=== PATIENT | female | born 1985 | race Caucasian/White ===

== ENCOUNTER 2017-12-23 10:53 | Emergency (ER) | payer OTHER ==
[2017-12-23 11:30] VITALS: BP 110/55
[2017-12-23] MEDS ORDERED: Ketorolac INJ* 60 MG/2 ML VIAL IM ONE (11:52)
--- NOTE | 2017-12-23 11:57 | UC ---
Neck Pain HPI - HPI Summary HPI Summary: 32-year-old woman comes to clinic today with a chief complaint of lower neck and upper thoracic back and left scapula left arm pain. Pain started 4 days ago. She woke up in the morning with the pain. No known trauma. Patient states it feels like a pinched nerve. Denies any chest pain or shortness of breath. The left arm feels tingly and numb. Pain is decreased when she holds the left arm up over her head. It hurts to move the arm but she has good strength. - History of Current Complaint Chief Complaint: UCUpperExtremity Stated Complaint: LEFT ARM COMPLAINT Time Seen by Provider: 12/23/17 11:45 Hx Last Menstrual Period: last week Pain Intensity: 9 - Allergies/Home Medications Allergies/Adverse Reactions: Allergies Allergy/AdvReac Type Severity Reaction Status Date / Time Penicillins Allergy Shortness Verified 12/23/17 11:31 of Breath Home Medications: Home Medications Acetaminophen [Tylenol Extra Strength] 1,000 mg PO Q6H PRN 12/23/17 [History Confirmed 12/23/17] Quetiapine Fumarate [Seroquel 50 mg tab] 50 mg PO QPM 12/23/17 [History Confirmed 12/23/17] Sertraline* [Zoloft*] 100 mg PO BEDTIME 12/23/17 [History Confirmed 12/23/17] PMH/Surg Hx/FS Hx/Imm Hx - Surgical History Surgical History: Yes Surgery Procedure, Year, and Place: , - Social History Alcohol Use: Occasionally Substance Use Type: None Smoking Status (MU): Heavy Every Day Tobacco Smoker Review Of Systems Constitutional: Positive: Negative Skin: Positive: Negative Eyes: Positive: Negative ENT: Positive: Negative Respiratory: Positive: Negative Cardiovascular: Positive: Negative Gastrointestinal: Positive: Negative Musculoskeletal: Positive: Other: - See history present illness Neurological: Positive: Other - See history present illness Psychological: Positive: Negative All Other Systems Reviewed And Are Negative: Yes Physical Exam Triage Information Reviewed: Yes Appearance: Well-Appearing, Well-Nourished, Pain Distress - moderate with palpation of left scapulaer area and with rom of left arm Vital Signs: Initial Vital Signs Temp 97.5 F 12/23/17 11:16 Pulse 67 12/23/17 11:16 Resp 24 12/23/17 11:16 BP 110/55 12/23/17 11:16 Pulse Ox 98 12/23/17 11:16 Vital Signs Reviewed: Yes Eye Exam: Normal Eyes: Positive: Conjunctiva Clear Neck exam: Normal Neck: Positive: Supple, Nontender Respiratory: Positive: Lungs clear, Normal breath sounds, No respiratory distress Cardiovascular: Positive: RRR Musculoskeletal: Positive: Other: - On examination patient has full strength with finger extension and flexion abduction and abduction. The wrists have full strength in all range of motion of the elbows have full range of motion full-strength. Shoulders also have full range of motion and full strength. Normal radial pulses bilaterally. Patient reports some decreased sensation on the left forearm. Neurological: Positive: Alert, Other: Psychological Exam: Normal Psychological: Positive: Age Appropriate Behavior Skin Exam: Normal Neck Pain Course/Dx - Course Course Of Treatment: Order Information: CT SPINE CERVICAL W/O. Accession Number : [id number]. CPT: 45033. INDICATION: Pain lower neck radiation into the left arm. COMPARISON: There are no prior studies available for comparison. TECHNIQUE: Contiguous axial sections were obtained from the skull base through the T1. vertebra. Images were reconstructed in the sagittal and coronal planes. FINDINGS: VERTEBRA: There is straightening and reversal of the normal cervical lordosis. No. prevertebral soft tissue swelling or fracture is seen. C2-C3: No significant disc bulge or herniation is noted. No spinal canal or neural. foraminal narrowing is seen. C3-C4: No significant disc bulge or herniation is noted. No spinal canal or neural. foraminal narrowing is seen. C4-C5: No significant disc bulge or herniation is noted. No spinal canal or neural. foraminal narrowing is seen. C5-C6: There is a mild broad-based disc bulge. No significant spinal canal or neural. foraminal narrowing is seen. C6- C7: There is mild posterior uncinate process spurring. No significant spinal canal. narrowing is seen. Neural foramen appear patent on both sides. LUNG APICES: The lung apices appear clear. IMPRESSION: 1. STRAIGHTENING OF THE CERVICAL SPINE. NO EVIDENCE FOR FRACTURE OR SUBLUXATION. 2. MILD CERVICAL SPONDYLOSIS DESCRIBED. . <Electronically signed by Lang Mcclain MD in [place]> 12/23/17 1301. Order Information: CT SPINE THORACIC W/O. Accession Number: [id number]. CPT: 82604. Indication: Four-day [shoulder pain with radiation to the LEFT arm and hand specifically. the fourth and fifth fingers. Comparison: None. Technique : Noncontrast CT thoracic spine. Multiplanar reformation. Report: Negative for paravertebral hematoma or mass. Negative for thoracic spine fracture or suspicious focal osseous lesions. Multilevel predominant mild thoracic degenerative spondylosis with predominant anterior. and lateral osteophytes most prominent at T4-T5 and T8-T9. At T11-T12 there is mild dorsal. spondylitic ridging and disc bulge complex with only mild resulting impression on the. RIGHT anterior margin of the thecal sac and mild RIGHT foraminal stenosis resulting. IMPRESSION: #. Multilevel predominant mild thoracic degenerative spondylosis. #. At the 11-12 there is mild resulting impression on the RIGHT anterior margin of the. thecal sac and mild RIGHT foraminal stenosis. #. No finding to account for LEFT upper extremity symptoms. . <Electronically signed by Jose D Mascorro MD in [facility]> 12/23/[address]iscuss[address] the CT results with the patient. She has had some pain relief with the Toradol IM. There is no focal neurologic deficits at this time. There is pain but no weakness. The plan is to prescribe ibuprofen and Tylenol with codeine and Flexeril and follow up with her primary care doctor. I discussed the need for immediate evaluation if she ends up with weakness or any neurologic deficit that does not resolve quickly. I warned her of the risk of possible long-term nerve damage if she does not get reevaluated in a timely fashion. - Differential Dx/Diagnosis Provider Diagnoses: CERVICAL NECK AND UPPER THORACIC BACK PAIN. RADICULOPATHY Discharge - Sign-Out/Discharge Documenting (check all that apply): Patient Departure All imaging exams completed and their final reports reviewed: Yes - Discharge Plan Condition: Stable Disposition: HOME Patient Education Materials: Neck Pain (ED), Cervical Radiculopathy (ED), Back Pain (ED) Forms: *Work Release Referrals: Martha Combs NP [Primary Care Provider] - Additional Instructions: FOLLOW UP WITH YOUR DOCTOR. GET RECHECKED RIGHT AWAY FOR ANY WORSENING OF YOUR CONDITION; PAIN, WEAKNESS/ NUMBNESS THAT DOES NOT RESOLVE IN A SHORT PERIOD OF TIME OR QUESTIONS OR CONCERNS. - Billing Disposition and Condition Condition: STABLE Disposition: Home
--- NOTE | 2017-12-23 13:05 | RAD ---
INDICATION: Pain lower neck radiation into the left arm. COMPARISON: There are no prior studies available for comparison. TECHNIQUE: Contiguous axial sections were obtained from the skull base through the T1 vertebra. Images were reconstructed in the sagittal and coronal planes. FINDINGS: VERTEBRA: There is straightening and reversal of the normal cervical lordosis. No prevertebral soft tissue swelling or fracture is seen. C2-C3: No significant disc bulge or herniation is noted. No spinal canal or neural foraminal narrowing is seen. C3-C4: No significant disc bulge or herniation is noted. No spinal canal or neural foraminal narrowing is seen. C4-C5: No significant disc bulge or herniation is noted. No spinal canal or neural foraminal narrowing is seen. C5-C6: There is a mild broad-based disc bulge. No significant spinal canal or neural foraminal narrowing is seen. C6-C7: There is mild posterior uncinate process spurring. No significant spinal canal narrowing is seen. Neural foramen appear patent on both sides. LUNG APICES: The lung apices appear clear. IMPRESSION: 1. STRAIGHTENING OF THE CERVICAL SPINE. NO EVIDENCE FOR FRACTURE OR SUBLUXATION. 2. MILD CERVICAL SPONDYLOSIS DESCRIBED.
--- NOTE | 2017-12-23 13:10 | RAD ---
Indication: Four-day [shoulder pain with radiation to the LEFT arm and hand specifically the fourth and fifth fingers. Comparison: None. Technique: Noncontrast CT thoracic spine. Multiplanar reformation. Report: Negative for paravertebral hematoma or mass. Negative for thoracic spine fracture or suspicious focal osseous lesions. Multilevel predominant mild thoracic degenerative spondylosis with predominant anterior and lateral osteophytes most prominent at T4-T5 and T8-T9. At T11-T12 there is mild dorsal spondylitic ridging and disc bulge complex with only mild resulting impression on the RIGHT anterior margin of the thecal sac and mild RIGHT foraminal stenosis resulting. IMPRESSION: #. Multilevel predominant mild thoracic degenerative spondylosis. #. At the 11-12 there is mild resulting impression on the RIGHT anterior margin of the thecal sac and mild RIGHT foraminal stenosis. #. No finding to account for LEFT upper extremity symptoms.
== END 2017-12-23 13:37 | disposition home or self-care (01) ==
LOC: UCCORT 10:53
DX: M47.892 Other spondylosis, cervical region (principal); M47.894 Other spondylosis, thoracic region; M54.13 Radiculopathy, cervicothoracic region; Z88.0 Allergy status to penicillin; Z87.891 Personal history of nicotine dependence
CPT/HCPCS: 72125; 72128; 96372; 99202; G0463; J1885